=== PATIENT | male | born 1960 | race Caucasian/White ===

== ENCOUNTER → 2025-04-22 | Day surgery (SDC) | payer MEDICARE, MEDICAID ==
[~2025-04-22] VITALS: Ht 172.7 cm; Wt 110.7 kg
[~2025-04-22] MED LIST: ACETYLCHOLINE CHLORIDE INTRAOCULAR SOLUTION 1:100 ELECTROLYTE DILUENT IO ONE; AMIN30LI31 PO; APIX5TAB PO; ARIP5TAB51 PO; ATOR-2 PO; BALANCED SALT IRRIG SOLN 15ML ONE; BALANCED SALT IRRIG SOLN COMB1 500ML OP NR; BALANCED SALT IRRIG SOLN COMB1 500ML OP SCH; BUPIVACAINE HCL/PF 0.75% (7.5MG/ML) 10ML ONE; CARV25TA47 PO; CHLORHEXIDINE GLUCONATE 4% EXTERNAL USE TOP NR; CIPROFLOXACIN 0.3% OPHTH SOLN 2.5ML ONE; CLON0.1T PO; DOCU-405 PO; FERR325T6 PO; FOLI0.8T23 PO; FURO80TA3 PO; GABA-529 PO; GLIM1TAB55 PO; HYALURONATE SODIUM 10MG/ML 0.55ML SYRINGE IO ONE; INSU100I28 SQ; INSU100I53 SQ; LEVO200T8 PO; LIDOCAINE HCL/EPINEPHRINE 2%-EPI 1:200,000 20ML VIAL ONE; MIDAZOLAM HCL 2 MG/2 ML VIAL ONE; NEO/POLYMYX B SULF/DEXAMETH OPHTH OINT 3.5GM ONE; NIFE90TA60 PO; ONDANSETRON HCL 4MG/2ML INJ IV PRN; PANT40TA51 PO; PHENYLEPHRINE 2.5% OPHTH 15 DROP/ML BOTTLE RIGHTEYE ONE; PHENYLEPHRINE HCL 2.5% OPHTH DROPS 2ML ONE; POLY17PO43 PO; PREDNISOLONE ACETATE 1% OPHTH DROPS 5ML ONE; PROPOFOL 200MG/20ML VIAL IV ONE; SENN-362 PO; SODIUM CHLORIDE 0.9% 500 ML IV ONE; TEMA7.5C6 PO; TETRACAINE 0.5% OPHTH DROPS 4ML ONE; TOBRAMYCIN/DEXAMETHASONE OPTH DROPS 2.5ML ONE; TRIAMCINOLONE ACETONIDE 40MG/ML 1ML VIAL ONE; TROPICAMIDE 1% OPHTH DROPS 15ML ONE; TROPICAMIDE 1% OPHTH DROPS 15ML RIGHTEYE ONE; ZINC220T3 PO
[2025-04-22 07:50] LABS: BASOPHILS % 1.2 % (0.0-2.0); EOSINOPHILS % 6.2 % (0.0-5.0); HEMATOCRIT. 26.0 % (42.0-52.0); HEMOGLOBIN. 8.8 g/dL (14.0-18.0); LYMPHOCYTES % 26.9 % (20.0-50.0); MEAN PLATELET VOLUME 9.5 fl (7.4-10.4); MONOCYTES % 10.2 % (2.0-8.0); NEUTROPHILS % 55.5 % (40.0-76.0); PLATELET 176 x1000/uL (130-400); RED BLOOD CELL COUNT 2.73 mill/uL (4.7-6.1); RED CELL DISTRIBUTION WIDTH 15.5 % (11.6-14.6)
[2025-04-22 08:01] LABS: UREA NITROGEN BLOOD 53.0 mg/dL (9-23)
[2025-04-22 08:20] LABS: CREATININE 6.0 mg/dL (0.6-1.3)
[2025-04-22] MEDS: ACETAMINOPHEN 325MG TABLET PO PRN (13:55)
== END | disposition home or self-care (01) ==
LOC: OR 06:59
PROVIDERS: ATTEND Ophthalmology
DX: E11.36 Type 2 diabetes mellitus with diabetic cataract (principal); H25.89 Other age-related cataract; I13.2 Hypertensive heart and chronic kidney disease with heart failure and with stage 5 chronic kidney disease, or end stage renal disease; I50.9 Heart failure, unspecified; N18.6 End stage renal disease; E11.22 Type 2 diabetes mellitus with diabetic chronic kidney disease; E11.42 Type 2 diabetes mellitus with diabetic polyneuropathy; E03.9 Hypothyroidism, unspecified; I25.2 Old myocardial infarction; I48.91 Unspecified atrial fibrillation; Z98.41 Cataract extraction status, right eye; Z98.890 Other specified postprocedural states; Z79.899 Other long term (current) drug therapy; Z99.2 Dependence on renal dialysis; Z91.041 Radiographic dye allergy status
CPT/HCPCS: 66984; 80048; 85025; 36415; 93005; V2632; J3490 ×3; J2250; J2704; J3301